=== PATIENT | male | born 1950 | race Caucasian/White ===

== ENCOUNTER → 2017-06-04 22:58 | Emergency (ER) | payer MEDICARE ==
[2017-06-04] MEDS: NS 0.9% 1000 ML* 1,000 ML IV ONE (23:49)
[2017-06-04 23:59] LABS: Hematocrit 37 % (42-52); Hemoglobin 13.1 g/dl (14.0-18.0); Mean Corpuscular HGB Conc 35 g/dl (31-36); Mean Corpuscular Hemoglobin 32 pg (27-31); Mean Corpuscular Volume 90 fL (80-94); Mean Platelet Volume 8 um3 (7.4-10.4); Red Blood Count 4.13 10^6/ul (4.0-5.4); Red Cell Distribution Width 13 % (10.5-15)
[2017-06-05 00:11] LABS: ALT 14 U/L (7-52); AST 18 U/L (13-39); Alkaline Phosphatase 71 U/L (34-104); Anion Gap 7 mmol/L (2-11); BUN/Creatinine Ratio 17.8 (8-20); Blood Urea Nitrogen 16 mg/dL (6-24); C Reactive Protein < 1.00 mg/L (< 5.00); CO2 Carbon Dioxide 24 mmol/L (22-32); Calcium 8.7 mg/dL (8.6-10.3); Chloride 101 mmol/L (101-111); Creatine Kinase 108 U/L (10-223); EGFR African American 108.9 (>60); EGFR Non-African American 84.7 (>60); Globulin 3.3 g/dL (2-4); Glucose 252 mg/dL (70-100); Magnesium 2.1 mg/dL (1.9-2.7); Potassium 3.9 mmol/L (3.5-5.0); Sodium 132 mmol/L (133-145); Total Protein 7.3 g/dL (6.4-8.9)
[2017-06-05 00:29] LABS: TSH (Thyroid Stimulating Horm) 4.18 mcIU/mL (0.34-5.60)
[2017-06-05] MEDS: NS 0.9% 1000 ML* 1,000 ML IV ONE (01:01)
[2017-06-05 02:04] LABS: Urine Bilirubin Negative (Negative); Urine Glucose 1+(50 mg/dL) (Negative); Urine Nitrite Negative (Negative)
[2017-06-05 03:03] VITALS: BP 144/84
--- NOTE | 2017-06-05 07:50 | RAD ---
HISTORY: Dizziness COMPARISONS: September 03, 2015 VIEWS: 1: frontal portable view of the chest at 12:15 AM FINDINGS: LINES AND TUBES: None. CARDIOMEDIASTINAL SILHOUETTE: The cardiomediastinal silhouette is normal for portable technique. PLEURA: The costophrenic angles are sharp. No pleural abnormalities are noted. LUNG PARENCHYMA: The lungs are clear. ABDOMEN: The upper abdomen is clear. There is no subphrenic gas. BONES AND SOFT TISSUES: No bone or soft tissue abnormalities are noted. IMPRESSION: NO ACTIVE CARDIOPULMONARY DISEASE.
--- NOTE | 2017-06-05 10:39 | ED ---
Barbara Harper Thomas, scribed for Sally Riggs MD on 06/04/17 at 2347 . Dizziness - HPI Summary HPI Summary: The pt is a 67 y/o F presenting to the ED c/o dizziness that suddenly began today at 21:30. The dizziness began when he was sitting and it is characterized as room spinning. The dizziness is aggravated by standing up and alleviated by nothing. 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 Pt additionally c/o nausea, tiredness, and diaphoresis (STATIONARY FIREMAN). Pt denies SINGH, CP, sinus pressure, and abd pain. He denies recent illness. He has no prior episodes of dizziness. There is no known cardiac disease. PMHx of HTN and HLD, both treated with medication. FHx of [place] in father. - History Of Current Complaint Chief Complaint: EDDizziness Stated Complaint: DIZZY/NAUSEA Time Seen by Provider: 06/04/17 23:06 Hx Obtained From: Patient Onset/Duration: Suddenly Timing: Constant Character: Room Spinning Aggravating Factor(s): Nothing Alleviating Factor(s): Nothing Associated Signs And Symptoms: Positive: Nausea, Other: - Tiredness, diaphoresisNEGATIVE: SINGH, sinus pressure, abd pain. Negative: Chest Pain - Allergies/Home Medications Allergies/Adverse Reactions: Allergies Allergy/AdvReac Type Severity Reaction Status Date / Time Nitroglycerin Allergy Rash Verified 09/16/15 09:07 PMH/Surg Hx/FS Hx/Imm Hx Previously Healthy: No Endocrine/Hematology History: Denies: Hx Diabetes Cardiovascular History: Reports: Hx Angina, Hx Hypercholesterolemia, Hx Hypertension Denies: Hx Coronary Artery Disease, Hx Myocardial Infarction, Hx Pacemaker/ ICD, Hx Valvular Heart Disease Respiratory History: Denies: Hx Asthma, Hx Chronic Obstructive Pulmonary Disease (COPD) History: Denies: Hx Dialysis, Hx Renal Disease Sensory History: Denies: Hx Hearing Aid Psychiatric History: Reports: Other Psychiatric Issues/Disorders - claustrophobia Denies: Hx Panic Disorder - Surgical History Surgery Procedure, Year, and Place: None Infectious Disease History: No Infectious Disease History: Denies: Traveled Outside the [place] in Last 30 Days - Family History Known Family History: Positive: Cardiac Disease - [place] in father - Social History Alcohol Use: Occasionally Hx Substance Use: No Substance Use Type: Reports: None Hx Tobacco Use: No Smoking Status (MU): Never Smoked Tobacco Review of Systems Positive: Skin Diaphoresis - STATIONARY FIREMAN, Other - Tiredness Negative: Other - NEGATIVE: sinus pressure Negative: Chest Pain Positive: Nausea. Negative: Abdominal Pain Neurological: Other - Dizziness with sudden onset today at 21:30 Negative: Headache All Other Systems Reviewed And Are Negative: Yes Physical Exam Triage Information Reviewed: Yes Vital Signs On Initial Exam: Initial Vitals Temp Pulse Resp BP Pulse Ox 96 F 63 20 135/79 99 06/04/17 23:00 06/04/17 23:00 06/04/17 23:00 06/04/17 23:00 06/04/17 23:00 Vital Signs Reviewed: Yes Appearance: Positive: No Pain Distress, Well-Nourished, Ill-Appearing Skin: Positive: Warm, Skin Color Reflects Adequate Perfusion Head/Face: Positive: Normal Head/Face Inspection Eyes: Positive: Conjunctiva Clear ENT: Positive: Normal ENT inspection Neck: Positive: Supple Respiratory/Lung Sounds: Positive: Clear to Auscultation, Breath Sounds Present , Other - No respiratory distress Cardiovascular: Positive: RRR, Pulses are Symmetrical in both Upper and Lower Extremities, Other - Brisk cap refill. Negative: Murmur Abdomen Description: Positive: Nontender, Soft Bowel Sounds: Positive: Present Musculoskeletal: Positive: Strength/ROM Intact Neurological: Positive: Sensory/Motor Intact, Alert, Oriented to Person Place, Time, Facial Symmetry, Speech Normal Psychiatric: Positive: Normal Diagnostics - Vital Signs Vital Signs Temp Pulse Resp BP Pulse Ox 06/04/17 23:00 96 F 63 20 135/79 99 - Laboratory Lab Results: Lab Results 06/04/17 06/04/17 06/04/17 Range/Units 23:40 23:40 23:40 WBC (3.5-10.8) 10^3/ul RBC (4.0-5.4) 10^6/ul Hgb (14.0-18.0) g/dl Hct (42-52) % MCV (80-94) fL MCH (27-31) pg MCHC (31-36) g/dl RDW (10.5-15) % Plt Count (150-450) 10^3/ul MPV (7.4-10.4) um3 Neut % (Auto) (38-83) % Lymph % (Auto) (25-47) % [place] % (Auto) (1-9) % Eos % (Auto) (0-6) % Baso % (Auto) (0-2) % Absolute Neuts (auto) (1.5-7.7) 10^3/ul Absolute Lymphs (auto) (1.0-4.8) 10^3/ul Absolute Monos (auto) (0-0.8) 10^3/ul Absolute Eos (auto) (0-0.6) 10^3/ul Absolute Basos (auto) (0-0.2) 10^3/ul Absolute Nucleated RBC 10^3/ul Nucleated RBC % INR (Anticoag Therapy) 0.97 (0.89-1.11) APTT 29.7 (26.0-36.3) seconds Sodium 132 L (133-145) mmol/L Potassium 3.9 (3.5-5.0) mmol/L Chloride 101 (101-111) mmol/L Carbon Dioxide 24 (22-32) mmol/L Anion Gap 7 (2-11) mmol/L BUN 16 (6-24) mg/dL Creatinine 0.90 (0.67-1.17) mg/dL Est GFR ( Amer) 108.9 (>60) Est GFR (Non-Af Amer) 84.7 (>60) BUN/Creatinine Ratio 17.8 (8-20) Glucose 252 H (70-100) mg/dL Lactic Acid (0.5-2.0) mmol/L Calcium 8.7 (8.6-10.3) mg/dL Magnesium 2.1 (1.9-2.7) mg/dL Total Bilirubin 0.30 (0.2-1.0) mg/dL AST 18 (13-39) U/L ALT 14 (7-52) U/L Alkaline Phosphatase 71 (34-104) U/L Total Creatine Kinase 108 (10-223) U/L Troponin I 0.00 (<0.04) ng/mL C-Reactive Protein < 1.00 (< 5.00) mg/L B-Natriuretic Peptide 37 ( - 100) pg/mL Total Protein 7.3 (6.4-8.9) g/dL Albumin 4.0 (3.2-5.2) g/dL Globulin 3.3 (2-4) g/dL Albumin/Globulin Ratio 1.2 (1-3) TSH 4.18 (0.34-5.60) mcIU/mL Urine Color Urine Appearance Urine pH (5-9) Ur Specific [place] (1.010-1.030) Urine Protein (Negative) Urine Ketones (Negative) Urine Blood (Negative) Urine Nitrate (Negative) Urine Bilirubin (Negative) Urine Urobilinogen (Negative) Ur Leukocyte Esterase (Negative) Urine Glucose (Negative) 06/04/17 06/04/17 06/05/17 Range/Units 23:40 23:40 01:45 WBC 9.0 (3.5-10.8) 10^3/ul RBC 4.13 (4.0-5.4) 10^6/ul Hgb 13.1 L (14.0-18.0) g/dl Hct 37 L (42-52) % MCV 90 (80-94) fL MCH 32 H (27-31) pg MCHC 35 (31-36) g/dl RDW 13 (10.5-15) % Plt Count 219 (150-450) 10^3/ul MPV 8 (7.4-10.4) um3 Neut % (Auto) 76.1 (38-83) % Lymph % (Auto) 16.2 L (25-47) % [place] % (Auto) 4.8 (1-9) % Eos % (Auto) 2.2 (0-6) % Baso % (Auto) 0.7 (0-2) % Absolute Neuts (auto) 6.8 (1.5-7.7) 10^3/ul Absolute Lymphs (auto) 1.5 (1.0-4.8) 10^3/ul Absolute Monos (auto) 0.4 (0-0.8) 10^3/ul Absolute Eos (auto) 0.2 (0-0.6) 10^3/ul Absolute Basos (auto) 0.1 (0-0.2) 10^3/ul Absolute Nucleated RBC 0 10^3/ul Nucleated RBC % 0 INR (Anticoag Therapy) (0.89-1.11) APTT (26.0-36.3) seconds Sodium (133-145) mmol/L Potassium (3.5-5.0) mmol/L Chloride (101-111) mmol/L Carbon Dioxide (22-32) mmol/L Anion Gap (2-11) mmol/L BUN (6-24) mg/dL Creatinine (0.67-1.17) mg/dL Est GFR ( Amer) (>60) Est GFR (Non-Af Amer) (>60) BUN/Creatinine Ratio (8-20) Glucose (70-100) mg/dL Lactic Acid 2.2 H* (0.5-2.0) mmol/L Calcium (8.6-10.3) mg/dL Magnesium (1.9-2.7) mg/dL Total Bilirubin (0.2-1.0) mg/dL AST (13-39) U/L ALT (7-52) U/L Alkaline Phosphatase (34-104) U/L Total Creatine Kinase (10-223) U/L Troponin I (<0.04) ng/mL C-Reactive Protein (< 5.00) mg/L B-Natriuretic Peptide ( - 100) pg/mL Total Protein (6.4-8.9) g/dL Albumin (3.2-5.2) g/dL Globulin (2-4) g/dL Albumin/Globulin Ratio (1-3) TSH (0.34-5.60) mcIU/mL Urine Color Yellow Urine Appearance Clear Urine pH 7.0 (5-9) Ur Specific [place] 1.012 (1.010-1.030) Urine Protein Negative (Negative) Urine Ketones Negative (Negative) Urine Blood Negative (Negative) Urine Nitrate Negative (Negative) Urine Bilirubin Negative (Negative) Urine Urobilinogen Negative (Negative) Ur Leukocyte Esterase Negative (Negative) Urine Glucose 1+(50 mg/dl) H (Negative) Result Diagrams: 06/04/17 23:40 06/04/17 23:40 Lab Statement: Any lab studies that have been ordered have been reviewed, and results considered in the medical decision making process. - Radiology CXR Xray Interpretation: No Acute Changes - No acute disease. Radiology Interpretation Completed By: ED Physician - EKG 23:07 Cardiac Rate: Bradycardia - 57 BPM EKG Rhythm: Sinus Bradycardia EKG Interpretation: Nml AV/IV/[place]/QTc. No acute changes. EKG Comparison: Other - Compared to 06/18/16, there is no significant change. Re-Evaluation - Re-Evaluation First Eval Re-Evaluation Time: 00:48 Change: Improved Comment: At re-evaluation at 00:48, the patient's dizziness when standing up is relieved and he overall feels better. He is not orthostatic. Lying: BP 140/75, HR 60, RR 14, SaO2 98. Sitting: BP 136/71, HR 62, RR 17, SaO2 96. Standing: BP 147/79, HR 64, RR 16, SaO2 95. Dizzy Course/Dx - Course Course Of Treatment: I am aware of elevated lactate at 00:20. Patient is not orthostatic. Allergies noted. High blood pressure noted. Patients medications reviewed this visit. Assessment/Plan: The pt is a 67 y/o F presenting to the ED c/o dizziness that suddenly began today at 21:30. The dizziness is characterized as room spinning and is aggravated by standing up. Pt denies SINGH, and CP. Patients medication reviewed this visit. Blood pressure noted. In the ED course the patient was given IV fluids. EKG was obtained. Bloodwork was obtained with results earlier in this report. Lactic acid 2.2, Glucose UA was obtained with results earlier in this report. EKG shows sinus bradycardia. CXR shows no acute changes. Patient is diagnosed with dizziness and hyperglycemia. Patient will be discharged home with follow up by PCP. Pt is agreeable with this plan. - Diagnoses Provider Diagnoses: Dizziness, Hyperglycemia, HTN under poor control Discharge - Discharge Plan Condition: Stable Disposition: HOME Patient Education Materials: Hyperglycemia, Non-Diabetic (ED), Dizziness (ED) Referrals: Dalila Blair MD [Medical Doctor] - 2 Days Additional Instructions: Your glucose was 252 tonight which is very elevated, and you will likely be diagnosed with diabetes. You will need to follow up with Dr. Regine LIRA for this. Return to the emergency department for any new or worsening symptoms. The documentation as recorded by the Barbara allison Thomas accurately reflects the service I personally performed and the decisions made by me, Sally Riggs MD.
== END | disposition home or self-care (01) ==
LOC: ED 22:58
DX: R73.9 Hyperglycemia, unspecified (principal); I10 Essential (primary) hypertension; R42 Dizziness and giddiness; R11.0 Nausea
CPT/HCPCS: 36415; 71010; 80053; 81003; 82550; 83605; 83735; 83880; 84443; 84484; 85025; 85610; 85730; 86140; 93005; 99283

== ENCOUNTER 2019-01-08 10:05 | Observation (INO) | payer MEDICARE ==
--- NOTE | 2019-01-08 10:39 | ED ---
Neurological HPI - HPI Summary HPI Summary: Patient is a 68 y/o M presenting to ED with complaints of recent near syncopal episodes. In the room, patient and recount three separate episodes of falls. Last night, patient had been pushing his child on a swing and was experiencing left arm pain. reports that during this time, the patient experienced a fall. The patient had stated, "I lost my balance" after the fall. Patient's also reports that, this morning, she heard the patient fall from his bed this morning onto the floor. She reports that the patient was unable to speak for a few minutes during this incident. Patient has limited memory of this incident and states that he does not recall getting too close to the edge of the bed. Patient's also reports that the patient had attempted to sit in a chair this morning, missed it, and fell onto the ground. She states that the patient had an inability to talk during this episode as well. Acute left- sided weakness is reported by the patient's . PMHx of HTN, HLD. No PSHx is reported. FMHx of cardiac disease. Occasional alcohol usage is endorsed, substance usage is denied, patient has never smoked cigarettes. On triage, pain is rated 3/10, nothing is noted to aggravate/alleviate Sx. Home medications and allergies are reviewed. 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 - Onset/Duration: Started days ago Timing: Intermittent Episodes Lasting: - 3 episodes Current Severity: Mild - 3/10 pain on triage Neurological Deficit Location: LUE, LLE Pain Intensity: 3 Pain Scale Used: 0-10 Numeric - 3/10 Character: Impaired Speech, Other: - near syncope, left sided weakness Frequency: Episodes x___ - 3 Aggravating: Nothing Alleviating: Nothing Associated Signs and Symptoms: Positive: Memory Loss, Weakness - left sided, Impaired Speech - Allergy/Home Medications Allergies/Adverse Reactions: Allergies Allergy/AdvReac Type Severity Reaction Status Date / Time nitroglycerin Allergy Rash Verified 01/08/19 16:50 Home Medications: Home Medications Aspirin EC TAB* [Ecotrin EC Low Dose 81 MG*] 81 mg PO BEDTIME 01/08/19 [History Confirmed 01/08/19] Lisinopril TAB* [Prinivil TAB*] 5 mg PO DAILY 01/08/19 [History Confirmed ] Metoprolol Tartrate TAB* [Lopressor TAB*] 25 mg PO BID 01/08/19 [History Confirmed 01/08/19] Simvastatin TAB(NF) [Zocor(NF)] 20 mg PO QPM 01/08/19 [History Confirmed ] PMH/Surg Hx/FS Hx/Imm Hx Endocrine/Hematology History: Denies: Hx Diabetes Cardiovascular History: Reports: Hx Angina, Hx Hypercholesterolemia, Hx Hypertension Denies: Hx Coronary Artery Disease, Hx Myocardial Infarction, Hx Pacemaker/ ICD, Hx Valvular Heart Disease Respiratory History: Denies: Hx Asthma, Hx Chronic Obstructive Pulmonary Disease (COPD) History: Denies: Hx Dialysis, Hx Renal Disease Sensory History: Denies: Hx Hearing Aid Psychiatric History: Reports: Other Psychiatric Issues/Disorders - claustrophobia Denies: Hx Panic Disorder - Surgical History Surgery Procedure, Year, and Place: None Infectious Disease History: No Infectious Disease History: Denies: Traveled Outside the [place] in Last 30 Days - Family History Known Family History: Positive: Cardiac Disease - [place] in father - Social History Alcohol Use: Occasionally Hx Substance Use: No Substance Use Type: Reports: None Hx Tobacco Use: No Smoking Status (MU): Never Smoked Tobacco Review of Systems Musculoskeletal: Other - POSITIVE - LEFT ARM PAIN; MULTIPLE FALLS Positive: Weakness - left sided, Syncope - near All Other Systems Reviewed And Are Negative: Yes Physical Exam - Summary Physical Exam Summary: VITAL SIGNS: Reviewed. GENERAL: Patient is a well-developed and nourished male who is lying comfortable in the stretcher. Patient is not in any acute respiratory distress. HEAD AND FACE: No signs of trauma. No ecchymosis, hematomas or skull depressions. No sinus tenderness. EYES: PERRLA, EOMI x 2, No injected conjunctiva, no nystagmus. No photophobia. EARS: Hearing grossly intact. Ear canals and tympanic membranes are within normal limits. MOUTH: Oropharynx within normal limits. NECK: Supple, trachea is midline, no adenopathy, no JVD, no carotid bruit, no c- spine tenderness, neck with full ROM. No meningeal signs, no Kernig's or brudzinskis signs. CHEST: Symmetric, no tenderness at palpation LUNGS: Clear to auscultation bilaterally. No wheezing or crackles. CVS: Regular rate and rhythm, S1 and S2 present, no murmurs or gallops appreciated. ABDOMEN: Soft, non-tender. No signs of distention. No rebound no guarding, and no masses palpated. Bowel sounds are normal. EXTREMITIES: FROM in all major joints, no edema, no cyanosis or clubbing. NEURO: Alert and oriented x 3. Speech is normal and follows commands. NIH 2 SKIN: Dry and warm GCS: 15 Triage Information Reviewed: Yes Vital Signs On Initial Exam: Initial Vitals Temp Pulse Resp BP Pulse Ox 96.6 F 68 18 167/93 98 01/08/19 10:06 01/08/19 10:06 01/08/19 10:06 01/08/19 10:06 01/08/19 10:06 Vital Signs Reviewed: Yes Diagnostics - Vital Signs Vital Signs Temp Pulse Resp BP Pulse Ox 01/08/19 10:06 96.6 F 68 18 167/93 98 - Laboratory Result Diagrams: 01/09/19 05:38 01/09/19 05:38 Lab Statement: Any lab studies that have been ordered have been reviewed, and results considered in the medical decision making process. - Radiology CHEST X-RAY Radiology Interpretation Completed By: Radiologist Summary of Radiographic Findings: IMPRESSION: No active cardiopulmonary disease is noted. THIS REPORT WAS REVIEWED BY DR. ISRAEL. BRAIN MRI Radiology Interpretation Completed By: Radiologist Summary of Radiographic Findings: IMPRESSION: SUBACUTE NONHEMORRHAGIC INFARCT OF THE RIGHT POSTERIOR FRONTAL CHRISTENSEN RADIATA. THIS REPORT WAS REVIEWED BY DR. ISRAEL. - CT BRAIN CT CT Interpretation Completed By: Radiologist Summary of CT Findings: IMPRESSION: #. No CT evidence for intracranial hemorrhage or acute or subacute ischemic infarct. Mild. involutional change and stigmata of chronic small vessel ischemic disease. THIS REPORT WAS REVIEWED BY DR. ISRAEL. HEAD CTA CT Interpretation Completed By: Radiologist Summary of CT Findings: IMPRESSION: 1. NO INTERNAL CAROTID ARTERY STENOSIS BY NASCET. 2. NO ANEURYSM, VASCULAR MALFORMATION, OCCLUSION, OR STENOSIS OF THE VISUALIZED. INTRACRANIAL CIRCULATION. THIS REPORT WAS REVIEWED BY DR. ISRAEL. - EKG 1022 Cardiac Rate: NL - rate of 67 BPM EKG Rhythm: Sinus Rhythm EKG Comparison: No Significant Change - EKG is similar to one done on 06/04/17 Summary of EKG Findings: EKG showed sinus rhythm with rate of 67 BPM, no ST elevation, EKG is similar to one done on 06/04/17 NIH Scale - NIH Scale Level of Consciousness: Alert/Keenly Responsive Ask Patient the Month and His/Her Age: Both Correct Ask Pt to Open/Close Eyes and Enamel Dipper/Release Non-Paretic Hand: Both Correctly Best Gaze (Only Horizontal Eye Movement): Normal Visual Field Testing: No Visual Loss Facial Paresis-Pt to Smile & Close Eyes or Grimace Symmetry: Normal/Symmetrical Motor Function - Right Arm: No Drift-Holds 10 Seconds Motor Function - Left Arm: Drifts LT 10 seconds Motor Function - Right Leg: No Drift-Holds 10 Seconds Motor Function - Left Leg: Drifts LT 10 seconds Limb Ataxia-Must be out of Proportion to Weakness Present: Absent Sensory (Use Pinprick to Test Arms/Legs/Trunk/Face): Normal Best Language (Describe Picture, Name Items): No Aphasia Dysarthria (Read Several Words): Normal Extinction and Inattention: No Abnormality Total Score: 2 Re-Evaluation - Re-Evaluation First Eval Re-Evaluation Time: 14:55 Comment: Discussed results of labs and imaging and consults, he is agreeable with admission. Course/Dx - Course Assessment/Plan: This patient is a 68-year-old male who presents to the emergency department with his with a chief complaint of having multiple falls since yesterday. Patient really doesnt remember exactly how he fell he thinks that he lost his balance however the patients reports that he did not lose his balance he is just weak in the left side. Past medical history significant for hypertension. In the physical exam the patient had slight weakness in the left upper extremity and left lower extremity. Head CT impression: No CT evidence for intracranial hemorrhage or acute or subacute ischemic infarct. Mild involutional changes and stigmata of chronic small vessel ischemic disease. Blood test results without any significant abnormality except for glucose of 156. Chest x-ray impression: No active cardiopulmonary disease. At 11:50 AM I discussed the case with Dr. Hinson from neurology who recommends a CTA of the head and neck and MRI of the brain without contrast. I also give the patient aspirin after swallowing evaluation was performed. CTA impression: No interconnected artery stenosis. No aneurysm , vascular malformation, occlusion or stenosis of the visualized intracranial circulation. Dr. Hinson came and assessed the patient and he recommends for the patient to be admitted for further workup and management. I discuss my physical exam, findings and test results with Dr. Rivers from the hospitalist services and she agrees to admit patient to her services. Patient is hemodynamically stable alert and oriented x 3. Dr. Hinson with follow-up the MRI result. - Diagnoses Provider Diagnoses: Ischemic cerebrovascular accident (CVA) - Physician Notifications Discussed Care Of Patient With: Piyush Hinson Time Discussed With Above Provider: 11:50 Instructed by Provider To: Other - Dr. Sharp communicated results of Brain CT. 1150 - Patient's case was discussed with Dr. Hinson, he asks that CTA Head , MRI be done. 1257 - Results of imaging so far and tests were discussed Dr. Hinson, he will come to ED to evaluate the patient and recommends admission. 1447 - Patient's case was discussed with Dr. Rivers, Dr. Rivers accepts for admission. - Critical Care Time Critical Care Time: 75-104 min Discharge - Sign-Out/Discharge Documenting (check all that apply): Patient Departure - admit - Discharge Plan Condition: Good Disposition: ADMITTED TO [facility] - Billing Disposition and Condition Condition: GOOD Disposition: Admitted to [facility] - Attestation Statements Document Initiated by Mae: Yes Documenting Scribe: TRINA RIVAS Provider For Whom Mae is Documenting (Include Credential): RITA ISRAEL MD Scribe Attestation: I, TRINA RIVAS, scribed for RITA ISRAEL MD on 01/09/19 at 1047. Scribe Documentation Reviewed: Yes Provider Attestation: The documentation as recorded by the TRINA allison accurately reflects the service I personally performed and the decisions made by me, RITA ISRAEL MD Status of Scribe Document: Viewed
[2019-01-08 11:13] LABS: ABS Eosinophils 0.1 10^3/ul (0-0.6); ABS Lymphocytes 1.6 10^3/ul (1.0-4.8); ABS Monocytes 0.7 10^3/ul (0-0.8); ABS Neutrophils 5.1 10^3/ul (1.5-7.7); Eosinophil % 1.3 %; Hematocrit 42 % (42-52); Hemoglobin 14.7 g/dL (14.0-18.0); Lymphocyte % 21.3 %; Mean Corpuscular HGB Conc 35 g/dL (31-36); Mean Corpuscular Hemoglobin 31 pg (27-31); Mean Corpuscular Volume 90 fL (80-94); Mean Platelet Volume 7.1 fL (7.4-10.4); Nucleated Red Blood Cells % 0.1; Platelet Count 212 10^3/uL (150-450); Red Blood Count 4.69 10^6 /uL (4.18-5.48); Red Cell Distribution Width 13 % (10.5-15); White Blood Count 7.5 10^3/uL (3.5-10.8)
[2019-01-08 11:30] LABS: INR 1.06 (0.82-1.09)
[2019-01-08 11:31] LABS: ALT 19 U/L (7-52); AST 16 U/L (13-39); Albumin 4.4 g/dL (3.2-5.2); Albumin/Globulin Ratio 1.3 (1-3); Alkaline Phosphatase 78 U/L (34-104); Anion Gap 6 mmol/L (2-11); BUN/Creatinine Ratio 13.8 (8-20); Blood Urea Nitrogen 13 mg/dL (6-24); CO2 Carbon Dioxide 26 mmol/L (22-32); Calcium 9.4 mg/dL (8.6-10.3); Chloride 104 mmol/L (101-111); Cholesterol 149 mg/dL; EGFR African American 97.2 (>60); EGFR Non-African American 80.3 (>60); Globulin 3.5 g/dL (2-4); Glucose 156 mg/dL (70-100); HDL Cholesterol 44.1 mg/dL; LDL Cholesterol 71 mg/dL; Potassium 3.9 mmol/L (3.5-5.0); Sodium 136 mmol/L (135-145); Total Protein 7.9 g/dL (6.4-8.9); Triglycerides 171 mg/dL; Troponin I 0.01 ng/mL (<0.04)
[2019-01-08 11:52] LABS: Alcohol < 10 mg/dL (<10)
[2019-01-08] MEDS ORDERED: Aspirin 81 mg CHEW TAB* 81 MG TAB.CHEW PO ONE (11:55)
[2019-01-08] MEDS ORDERED: Iohexol 350* (CONTRAST) 500 ML MDV IV ONE (12:09)
[2019-01-08] MEDS ORDERED: Iodixanol 320 (CONTRAST) 100 ML SDV IV ONE (12:35)
[2019-01-08] MEDS ORDERED: Acetaminophen TAB* 325 MG PO PRN (16:08)
[2019-01-08] MEDS ORDERED: Ondansetron INJ* 2 MG/ML VIAL IV PRN (16:08)
[2019-01-08] MEDS ORDERED: Simvastatin TAB(NF) 20 MG TAB PO SCH (18:00)
[2019-01-08] MEDS: Atorvastatin* 20 MG TAB PO SCH (18:05)
[2019-01-08] MEDS: Enoxaparin(*) 40 MG/0.4 ML SYR SUBCUT SCH (18:05)
[2019-01-08 18:16] LABS: Urine Appearance Clear; Urine Bilirubin Negative (Negative); Urine Blood Negative (Negative); Urine Color Yellow; Urine Glucose Negative (Negative); Urine Ketones Negative (Negative); Urine Nitrite Negative (Negative); Urine Protein Negative (Negative); Urine Specific Gravity 1.047 (1.010-1.030); Urine Urobilinogen Negative (Negative)
[2019-01-08 18:42] LABS: Urine Benzodiazepine Screen None Detected (None Detect); Urine Opiates Screen None Detected (None Detect)
[2019-01-08] MEDS: Cyanocobalamin TAB* 500 MCG PO SCH (18:55)
[2019-01-08] MEDS ORDERED: Lactated Ringers 1000 ML Bag* 1,000 ML IV SCH (20:00)
--- NOTE | 2019-01-08 20:56 | CONS ---
CONSULTATION REPORT: DATE OF CONSULT: 01/08/19 PATIENT OF: Dr. Neil, Dr. Blair. HISTORY OF PRESENT ILLNESS: This is a 68-year-old right-handed man who was in his usual state of health until last night. He got up off his sofa and he felt weak on his left side, and he fell out of bed during the course of the night. When his symptoms had persisted, he came to the ER. When he was coming in to the ER, he was having difficulty getting out of the car and Dr. Neil helped him , so thought he was ataxic at that point as well as weak on the left side. He no longer has balance issues other than difficulty walking in the past because of his weakness. 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 He had some mild headache yesterday, but does not currently have a headache. He has had no speech problems. No visual symptoms. No numbness. He has a history of hypertension, hyperlipidemia. No past surgeries. There is a family history of cardiac disease. He drinks sparingly and on occasion. He does not smoke or use drugs. MEDICATIONS: Medicines at home include: 1. Aspirin 81 mg daily. 2. Lisinopril 5 mg daily. 3. Metoprolol 25 mg b.i.d. 4. Simvastatin 20 mg daily. REVIEW OF SYSTEMS: Negative in all 14 spheres, other than in the HPI. PHYSICAL EXAMINATION: On exam, temperature 96.6, pulse 67, respirations 18, blood pressure 160/88. He is alert and oriented with normal speech and comprehension. Cranial nerves II through XII are intact. There was a minor facial asymmetry with the left side being lightly sagged compared to the right, but it was within normal variation. There was no nystagmus. Disks were sharp. Motor exam revealed normal tone. He had a mild left pronator drift. He had trace weakness in his left arm and hand, but not in his leg. He had an abnormal gait because he had more trouble bearing weight on his left leg than on his right and he walked hesitantly. There was no past-pointing and no clear ataxia on his gait. Sensation intact to light touch. Reflexes were 1 and equal , downgoing toes. Neck was supple. Chest: Clear. Cardiovascular: Regular rate and rhythm. Abdomen is soft with positive bowel sounds. DIAGNOSTIC STUDIES/LAB DATA: I reviewed his CT scan, which was normal. His CTA showed no carotid stenosis and no intracranial abnormalities. CBC was normal. Normal INR, PTT. LDL was 71. Normal CMP, other than glucose 156. Serum alcohol was less than 10. ASSESSMENT AND PLAN: Mr. Simms has evidence of a mild left hemiparesis that occurred acutely in January and most likely represents a small stroke. He has got an aspirin here and will be getting an MRI scan and should have most likely aspirin and Plavix. He will need a fasting lipid profile with a target of below 70. Presumably, his LDL will be lower when it is fasting rather than higher and then his statin will not need to be changed. He will also need a cardiac echo with bubble study. Following completion of his evaluation, we will make a decision of whether we need to pursue things further with prolonged EKG monitoring for atrial fibrillation. Thank you for sharing his case. [id number]/[facility] #: [id number] DAKOTAH
[2019-01-08] MEDS ORDERED: Aspirin EC TAB* 81 MG TAB.EC PO SCH (21:00)
--- NOTE | 2019-01-08 21:04 | HP ---
CC: Dr. Blair * ADMISSION HISTORY AND PHYSICAL: DATE OF ADMISSION: 01/08/19 PRIMARY CARE PROVIDER: Dr. Blair. MY ATTENDING WHILE IN THE HOSPITAL: Dr. Divya Rivers.* (DICTATED BY RUBY NEELY) CHIEF COMPLAINT: Left-sided weakness, fall. HISTORY OF PRESENT ILLNESS: Mr. Simms is a 68-year-old male with past medical history significant for hypertension, hyperlipidemia, and diabetes mellitus type 2, not on any medications, who presented to the emergency department after last night he began to feel like the left side of his body was weak and he lost balance and fell 1 time without loss of consciousness or injury. The patient never had anything like this before. The patient with no history of stroke. The patient has some numbness and tingling in his left side , left hand, this has subsided at this time. The patient was concerned but did not seek medical attention until today when his symptoms had persisted. The patient denies dafne dizziness. The patient denies chest pain, shortness of breath, palpitations. The patient has never had a history of palpitations. The patient has no family history of stroke. The patient has no recent changes in his medications. The patient does not check his blood pressure at home. The patient denies shortness of breath or dysuria. The patient has not been recently ill or had any recent sick contacts. The patient has not taken his medications today. The patient in the emergency department was seen in consultation by Dr. Piyush Hinson who identified left-sided weakness in the upper and lower extremities. The patient had a CTA which showed no large vessel occlusion and an MRI, which showed a stroke in the right posterior frontal muse radiata. Due to concern for CVA, we were asked to evaluate the patient for admission to the hospital. PAST MEDICAL HISTORY: Hypertension, hyperlipidemia, diabetes mellitus type 2. PAST SURGICAL HISTORY: None. MEDICATIONS: 1. Metoprolol 25 mg p.o. b.i.d. 2. Lisinopril 5 mg p.o. daily. 3. Aspirin 81 mg p.o. at bedtime. 4. Simvastatin 20 mg p.o. daily. ALLERGIES: NITROGLYCERIN. FAMILY HISTORY: His mother of uterine cancer. The patient's father of [place]. The patient has 1 sister with cancer, 2 sisters who are alive and well. SOCIAL HISTORY: The patient has never smoked, drank or used illicit drugs. The patient is a retired heavy equipment sales associate. The patient is and has 2 children. Surrogate decision maker will be his , Nasrin Simms. REVIEW OF SYSTEMS: A 14-point review of systems was reviewed and is negative except as stated above in the HPI. PHYSICAL EXAMINATION GENERAL: The patient is a 68-year-old male, who appears stated age, sitting comfortably in bed, in no acute distress. VITAL SIGNS: Temperature 96.6, pulse rate 80, respiratory rate 18, oxygen saturation 98% on room air, blood pressure 143/80. HEENT: Head: Normocephalic, atraumatic. Sclerae anicteric. No conjunctival injection. Nasal mucosa moist. Oral mucosa moist. No pharyngeal erythema, discharge, or exudate. NECK: Supple, nontender. No lymphadenopathy. No carotid bruit auscultated. No JVD. RESPIRATORY: Clear to auscultation bilaterally. No wheezes, rales, or rhonchi. Good air exchange bilaterally. CARDIAC: Regular rate and rhythm. No clicks, murmurs, gallops, or rubs. Pulses 2+ in the bilateral dorsalis pedis, posterior tibial, and radial areas. ABDOMEN: Soft, nontender, and nondistended. Bowel sounds present. Normoactive in all 4 quadrants. No hepatosplenomegaly. No abdominal bruits auscultated. No hepatojugular reflux. GENITOURINARY: No suprapubic or CVA tenderness. NEURO: Cranial nerves II through XII intact. The patient has 4-/5 strength in the left upper extremity, 5/5 in the right upper extremity, 4-/5 strength in the left lower extremity, 5/5 strength in the right lower extremity. Finger-to- nose test showed dysmetria on the left side. The patient was not ambulated due to feeling unsteady. Reflexes 1+ throughout. Babinski is downgoing bilaterally. PSYCHIATRIC: Pleasant and cooperative. SKIN: Clean, dry, intact. No rash. DIAGNOSTIC STUDIES/LAB DATA: White blood cell count 7.5, hemoglobin 14.7, platelet count 212. INR 1.06. APTT 30.3. Sodium 136, potassium 3.9, chloride 104, carbon dioxide 26, anion gap 6, BUN 13, creatinine 0.94, glucose 156. Lactic acid 1.4. Calcium 9.4. Bilirubin 0.4, AST 16, ALT 19, alkaline phosphatase 78. Troponin I 0.01. Protein 7.9. Albumin 4.5, globulin 3.5. Triglycerides 171, cholesterol 149, LDL cholesterol 71, HDL cholesterol 44.1. Serum alcohol less than 10. Studies: Electrocardiogram shows normal sinus rhythm, no ST-segment elevation or depression, single PAC, left axis deviation, no hypertrophy or enlargement, no signs of atrial fibrillation. Compared to previous exam, there are no significant changes. Brain CT read as no CT evidence of acute intracranial hemorrhage or subacute ischemic infarct, mild chronic ischemic changes. Chest x-ray read as no active cardiopulmonary disease. CTA read as no internal carotid stenosis by NASCET, no aneurysm, vascular malformation, occlusion or stenosis with visualized intracranial circulation. Brain MRI read as subacute stroke, hemorrhagic infarct, the right posterior frontal muse radiata. ASSESSMENT AND PLAN: Impression: Mr. Simms is a 68-year-old male with past medical history significant for hypertension, hyperlipidemia, and diabetes mellitus type 2 who presents with left-sided weakness and found to have a subacute stroke in the left muse radiata. The patient is not a candidate for TPA and was admitted to the hospital for evaluation secondary to prevention of stroke. 1. Cerebrovascular accident. The patient had significant left-sided weakness consistent with the cerebrovascular accident found on his brain MRI. The patient 's lipid profile shows an LDL of 71. The patient's statin will be increased due to this with goal less than 70. The patient will have hemoglobin A1c checked. The patient is on no medications for his diabetes. The patient's blood pressure is currently within normal limits. The patient does not need fluids nor his blood pressure medication will be continued until tomorrow for permissive hypertension. The patient had no signs of atrial fibrillation. The patient will be monitored on telemetry. The patient may be considered for outpatient Holter monitor. The patient has no signs that this could be a seizure or postictal changes. The patient has no large vessel occlusion and does not need to be transferred at this time. The patient was seen in consultation by Dr. Piyush Hinson of Neurology who will continue to follow along. The patient will have an echocardiogram with a bubble study to assess for PFO. The patient will be evaluated by Physical Therapy and Occupational Therapy. The patient passed swallow evaluation, will have heart healthy diet. 2. Hypertension. Permissive hypertension as above. Resume metoprolol and lisinopril and add additional agents or up-titrate current agents as indicated based on blood pressure. 3. Hyperlipidemia, not at goal. Increase simvastatin to 40 mg p.o. daily. 4. Diabetes mellitus type 2. Hemoglobin A1c is pending. Consider treating this at discharge with oral medications. 5. DVT prophylaxis. Heparin subcu. 6. FEN. The patient will have heart healthy diet, caffeine okay. The patient does not have fluids indicated, but if his blood pressure drops, this could be considered for perfusion of his cerebrovascular accident. 7. Code status. The patient would like to be a full code. 8. Disposition. The patient is admitted to observation. TIME SPENT: Approximately 60 minutes was spent on this admission of this patient, 30 of which was spent [id number] with the patient obtaining history and physical and discussing treatment plan. This plan has been discussed with my attending, Dr. Divya Rivers, she is in agreement. RUBY NEELY [id number]/[facility] #: [id number] MTDD
--- NOTE | 2019-01-08 22:38 | PN ---
Progress Note - Progress Note Date of Service: 01/08/19 Note: Patient had new onset left facial droop (Dx with CVA on MRI) earlier had bolus and lay head flat. Facial droop persisted despite SBP going to 160s. Will repeat head CT. RN concerned for tooth abscess. Patient denies pain. Recommend follow up in AM
[2019-01-09 07:01] LABS: ABS Eosinophils 0.2 10^3/ul (0-0.6); ABS Lymphocytes 1.9 10^3/ul (1.0-4.8); ABS Monocytes 0.8 10^3/ul (0-0.8); ABS Neutrophils 5.6 10^3/ul (1.5-7.7); Hematocrit 41 % (42-52); Hemoglobin 14.2 g/dL (14.0-18.0); Lymphocyte % 22.5 %; Mean Corpuscular HGB Conc 35 g/dL (31-36); Mean Corpuscular Hemoglobin 31 pg (27-31); Mean Corpuscular Volume 90 fL (80-94); Mean Platelet Volume 7.9 fL (7.4-10.4); Nucleated Red Blood Cells % 0.1; Platelet Count 206 10^3/uL (150-450); Red Blood Count 4.56 10^6 /uL (4.18-5.48); Red Cell Distribution Width 13 % (10.5-15); White Blood Count 8.5 10^3/uL (3.5-10.8)
[2019-01-09 07:19] LABS: BUN/Creatinine Ratio 14.9 (8-20); Calcium 9.3 mg/dL (8.6-10.3); EGFR African American 97.2 (>60); EGFR Non-African American 80.3 (>60); Magnesium 2.2 mg/dL (1.9-2.7); Potassium 4.3 mmol/L (3.5-5.0)
[2019-01-09] MEDS ORDERED: Clopidogrel TAB* 75 MG PO SCH (09:00)
[2019-01-09] MEDS ORDERED: Metoprolol Tartrate TAB* 25 MG PO SCH ×2 (09:00)
[2019-01-09] MEDS: Cyanocobalamin TAB* 500 MCG PO SCH (09:19)
[2019-01-09] MEDS ORDERED: Perflutren Lipid Microsphere* 3 ML VIAL ONE (11:14)
--- NOTE | 2019-01-09 16:04 | ECHO ---
*[facility]* [place] [address] Fax #: [phone] Transthoracic Echocardiogram Patient: Mendez, Height: 69 in / Mike N 175.3 cm : 1950 Weight: 231.5 lb / Study Date: 01/09/2019 105.2 kg Age: 68 BP: 145 / 79 Gender: M BMI/BSA: 34.3 kg/m^2 HR: 81 bpm / 2.2 m^2 *Plastic Surgery Technician: * Thania Burgos [facility] RN *Referring Physician: * Jerry Rosa *Reading Physician: * Yobani Mustafa MD Indications: TIA. History: Risk factors: Hypertension. Diabetes mellitus. Obese. Dyslipidemia. Conclusions Summary: 1. Left ventricle: The cavity size is normal. Wall thickness is moderately increased. Systolic function is normal. The estimated ejection fraction is 60-65%. There are no regional wall motion abnormalities. 2. Atrial septum: Bubble study was negative 3. Mitral valve: There is trivial regurgitation. 4. Aortic valve: There is trace to mild regurgitation. 5. Tricuspid valve: There is trivial regurgitation. 6. Pericardium, extracardiac: There is no pericardial effusion. 7. Impressions: No previous study was available for comparison. Study data: Transthoracic echocardiogram. Procedure: Transthoracic echocardiography was performed. A total of 3 ml of diluted Definity was given IV for image enhancement by Sherry Burgos RN, [facility]. Agitated normal saline was given IV for the bubble study. Images 1 and 2. Complete 2D, spectral Doppler, and color flow Doppler. Location: Procedure room. Patient status: Inpatient. Patient room number: 445-01. Rhythm: Normal sinus rhythm with PAC's. Findings Left ventricle: The cavity size is normal. Wall thickness is moderately increased. Systolic function is normal. The estimated ejection fraction is 60-65%. There are no regional wall motion abnormalities. There is no consistent Doppler evidence of clinically significant diastolic dysfunction. Right ventricle: The cavity size is normal. Systolic function is normal. Left atrium: The atrium is normal in size. Right atrium: The atrium is normal in size. Atrial septum: Bubble study was negative Images 1 and 2. Mitral valve: The leaflets are mildly thickened. There is no evidence of stenosis. There is trivial regurgitation. Aortic valve: The valve is trileaflet. The leaflets are mildly thickened. There is no evidence of stenosis. There is trace to mild regurgitation. The LVOT to aortic valve VTI ratio is 0.74. The ratio of LVOT to aortic valve peak velocity is 0.66. The ratio of LVOT to aortic valve mean velocity is 0.65. The mean systolic gradient is 4.0 mm Hg. The peak systolic gradient is 10.0 mm Hg. Tricuspid valve: The valve is structurally normal. There is no evidence of stenosis. There is trivial regurgitation. Pulmonic valve: The valve is structurally normal. There is no evidence of stenosis. There is trace to mild regurgitation. The peak systolic gradient is 2.0 mm Hg. Aorta: Aortic root: The aortic root is not dilated. Ascending aorta: The ascending aorta is not dilated. Aortic arch: The aortic arch is not visualized. Pericardium: There is no pericardial effusion. Pulmonary arteries: Not well visualized. Systemic veins: Inferior vena cava: The vessel is normal in size. The respirophasic diameter changes are in the normal range (>= 50%). Measurements Left ventricle Value Ref Left atrium continued Value Ref REMA, LAX (L) 3.7 cm 4.2 - 5.8 Vol/bsa, ES, 1-p 22 ml/m^2 12 - 37 ESD, LAX 3.0 cm 2.5 - 4.0 A4C FS, LAX (L) 19 % 25 - 43 Vol/bsa, ES, 1-p 26 ml/m^2 11 - 43 PW, ED, LAX (H) 1.3 cm 0.6 - 1.0 A2C IVS/PW, ED 1.1 Vol/bsa, ES, A/L 27 ml/m^2 16 - 34 E', lat nilam, (L) 9.9 cm/sec >=10.0 TDI Right atrium Value Ref E/e', lat nilam, 7 ML dim, ES, A4C 3.3 cm 2.6 - TDI 4.4 E', med nilam, (L) 6.9 cm/sec >=7.0 SI dim, ES, A4C 4.7 cm 3.4 - TDI 5.3 E/e', med nilam, 10 TDI Aortic valve Value Ref E', avg, TDI 8.4 cm/sec Nilam diam, ED 2.3 cm --- ----- E/e', avg, TDI 8 <=14 Peak v, S 1.56 m/sec -------- Mean v, S 0.99 m/sec -------- LVOT Value Ref VTI, S 26.6 cm -------- Diam 19.8 cm Mean grad, S 4.0 mm Hg -------- Peak michael, S 1.03 m/sec Peak grad, S 10.0 mm Hg -------- Mean michael, S 0.65 m/sec VTI, S 19.8 cm Mitral valve Value Ref Mean grad, S 2 mm Hg Peak E 0.71 m/sec -------- SV 6097 ml Peak A 0.89 m/sec -------- Decel time 370 ms -------- Ventricular septum Value Ref Peak E/A ratio 0.8 -------- IVS, ED, LAX (H) 1.4 cm 0.6 - 1.0 IVS, ED (H) 1.4 cm 0.6 - 1.0 Aortic root Value Ref Root diam 3.4 cm <4.3 Right ventricle Value Ref REMA minor ax, 3.3 cm 1.9 - 3.5 Ascending aorta Value Ref A4C mid AAo AP diam, S 3.2 cm -------- Left atrium Value Ref Inferior vena cava Value Ref AP dim, ES 3.20 cm 3.00 - Diam 1.8 cm -------- 4.00 ML dim, A4C 3.2 cm SI dim, A4C 5.0 cm Legend: (L) and (H) jaqui values outside specified reference range. Prepared and electronically signed by Yobani Mustafa MD 01/09/2019 16:03
[2019-01-09 16:48] VITALS: BP 157/84
[2019-01-09] MEDS: Enoxaparin(*) 40 MG/0.4 ML SYR SUBCUT SCH (17:00)
[2019-01-09] MEDS: Atorvastatin* 20 MG TAB PO SCH (17:00)
--- NOTE | 2019-01-09 21:13 | PN ---
CONTINUATION ADDENDUM INCLUDED ON THIS REPORT PROGRESS NOTE: DATE OF SERVICE: 01/09/19 PATIENT OF: HISTORY OF PRESENT ILLNESS: This is a 68-year-old right-handed man who is doing better today. His walking is much more stable. He is able to walk up and down stairs and has no headache. There is no numbness at this point. Has no other complaints. MEDICATIONS: Currently include: 1. Aspirin 81 mg daily. 2. Lipitor 20 mg daily. 3. Plavix 75 mg daily. 4. Metoprolol, not given. PHYSICAL EXAMINATION: On exam, temperature is 97.2, pulse 79, respiratory rate is 19, blood pressure 148/76. He is alert and oriented with normal speech and comprehension. Cranial nerves II through XII are intact. Motor exam revealed normal tone. He had a left pronator drift, but it is minimal today. Strength is intact. CONTINUATION ADDENDUM: PHYSICAL EXAMINATION: His gait had minimal give in his left leg when he walks, but he was stable and walked without problem. Strength is 5/5. Chest: Clear. Cardiovascular: Regular rate and rhythm. Abdomen soft with positive bowel sounds. DIAGNOSTIC STUDIES/LAB DATA: His MRI scan showed a small nonhemorrhagic subacute right frontal muse radiata stroke. His CTA was negative. His CBC was normal from today as well as his BMP other than blood sugar that was as high as 128, his B12 was 139. This will need to be treated. ASSESSMENT AND PLAN: Mr. Simms has had a small stroke with some left-sided symptoms, greatly improved. His echo is pending from today and he will need a fasting lipid profile. It is possible that this is secondary to atherosclerotic disease, but he is a young man and we have definitely not proved this. It would be reasonable for him to get a loop recorder to rule out atrial fibrillation. He for now he will be on aspirin and Plavix for a month and then he should go to a single antiplatelet agent. He also has significant snoring, it makes sense to schedule a sleep study to rule out sleep apnea as this has been associated with risk for stroke and other cardiovascular disease. I referred to the hospitalist to determine best treatment for the B12, whether an injection needs to be done or note. I will be glad to see the patient as needed. Thank you for sharing his case. [id number]/[facility] #: [id number] Aleida- [id number]/[facility] #: [id number] DAKOTAH
--- NOTE | 2019-01-09 23:50 | DS ---
CC: Dr. Dalila Blair, Dr. Piyush Hinson * DISCHARGE SUMMARY: DATE OF ADMISSION: 01/08/19 DATE OF DISCHARGE: 01/09/19 PRIMARY CARE PROVIDER: Dr. Dalila Blair. NEUROLOGIST: Dr. Piyush Hinson. ATTENDING PHYSICIAN: Dilcia Mccabe DO * (dictated by Marley Mary NP) PRIMARY DIAGNOSIS: Cerebrovascular accident. SECONDARY DIAGNOSES: 1. Hypertension. 2. Hyperlipidemia. 3. Diabetes mellitus, type 2. STUDIES WHILE IN THE HOSPITAL: 1. EKG on 01/08/19 shows normal sinus rhythm with a rate of 67, QTc of 411, occasional PACs. 2. Brain CT on 01/08/[address] evidence for intracranial hemorrhage or acute or subacute ischemic infarct. Mild involutional changes, stigmata of chronic small vessel ischemic disease. 3. Chest X-ray on 01/08/19 reads as no active cardiopulmonary disease. 4. Head CTA on 01/08/19 reads as no internal carotid artery stenosis by NASCET criteria. No aneurysm, vascular malformation, occlusion, or stenosis of the visualized intracranial circulation. 5. [facility] on 01/08/19 reads as subacute nonhemorrhagic infarct of the right posterior frontal muse radiata. 6. Brain CT on 01/08/19 reads as no acute intracranial findings or CT evidence of large territory infarct. Age-related atrophy and chronic white matter ischemic change. 7. Transthoracic echocardiogram on 01/09/19 reads as left ventricle: The cavity size is normal, wall thickness is moderately increased. Systolic function is normal. The estimated ejection fraction is 60% or 65%. There are no regional wall motion abnormality. Atrial septum: Bubble study was negative. Mitral valve: There is trivial regurgitation. Aortic valve: There is trace to mild regurgitation. Tricuspid valve: There is trivial regurgitation. Pericardium: There is no pericardial effusion. No previous study was available for comparison. HISTORY OF PRESENT ILLNESS AND HOSPITAL COURSE: Mr. Simms is a 68-year-old male with past medical history of hypertension, hyperlipidemia and type 2 diabetes who presented to the emergency room on 01/08/19 with complaints of left -sided weakness and a fall. Please see history and physical by RUBY Lantigua for complete summary of the events leading up to this hospitalization. In summary, the patient prior to presenting to the emergency room noted weakness on the left side of his body. He subsequently lost his balance and fell one time. He did have some numbness and tingling in his left side and because of symptoms had persisted presented to the emergency room. In the emergency room, he had imaging as noted above and lab work, which was essentially unremarkable except for a vitamin B12 level of 139. Vital signs were stable, although he was somewhat hypertensive. Because of the concern for CVA, he was admitted by the hospitalist service. The patient had an brain MRI, which did confirm an acute CVA. He was seen in consultation by Dr. Hinson from Neurology, who felt as though it represented a small stroke. He recommended placing the patient on aspirin and Plavix and recommended a target LDL of less than 70. He additionally recommended an echocardiogram with bubble study, the results of which are noted above. The patient had an uneventful night and was monitored on telemetry. He did not have any evidence of arrhythmias. This morning the patient reported feeling significantly better and felt as though his symptoms had mostly resolved. His at the bedside agreed with this statement. On exam, cranial nerves II through XII are grossly intact. Strength is 5/5 in the right upper and lower extremity and 4/5 in the left upper and lower extremity. The patient notes some unsteadiness while ambulating, but has been able to ambulate independently. Dr. Hinson did see the patient again today and I spoke with Dr. Hinson, who advised that as long as the the patient's imaging was normal, the patient could be discharged home today with plans for followup. Dr. Hinson initially did recommend a loop recorder and sleep study as well as a repeat lipid panel. I will note that in the emergency room, the patient had a lipid panel, which showed triglycerides of 171, total cholesterol of 149, LDL of 71, HDL of 44. This LDL of 71 is obviously greater than the target goal of 70, though this was not a fasting lipid panel and so Dr. Hinson felt as though the patient would benefit from a fasting panel as this number is likely lower. The patient and his are in agreement with plans for discharge. Mr. Simms is stable for discharge today. Vital signs are as follows: Temp 97.7, heart rate 77, respiratory rate 16, oxygen saturation 96% on room, blood pressure 157/84. DISCHARGE MEDICATIONS: New Medications: 1. Clopidogrel 75 mg p.o. daily. 2. Vitamin B12, 1000 mcg p.o. daily. Continued Medications: 1. Aspirin 81 mg p.o. daily. 2. Metoprolol tartrate 25 mg p.o. b.i.d. 3. Simvastatin 20 mg p.o. daily. 4. Lisinopril 5 mg p.o. daily. DISCHARGE PLAN: Mr. Simms will be discharge home. Activities will be as tolerated. Diet should be heart healthy. Medications are noted above. The patient has been started on Plavix per the recommendations of Neurology. He should continue taking his daily aspirin as he was prior to the hospitalization. The patient was noted to have a low vitamin B level while here in the hospital, so it has been recommended that he take vitamin B supplementation at this time. He can continue his other usual medications as noted above and I have not made any further changes. I have ordered a lipid panel for the patient, which I have advised him he can do within the next week, though this should be fasting. The results of this will go to his primary care provider and Dr. Hinson. Additionally, as I noted above I would recommend that the patient have a loop recorder to rule out any paroxysmal atrial fibrillation and he should have a sleep study as he is at high risk for obstructive sleep apnea. He will need to follow up with his primary care provider in 4 to 7 days and should followup with Dr. Hinson within the next month. He should return to the emergency room or nearest hospital for any worsening of symptoms, shortness of breath, lightheadedness, dizziness, chest discomfort, high fever, chills, night sweats, loss of consciousness. or other worrisome signs or symptoms. DISCHARGE CONDITION: Stable. DISCHARGE DISPOSITION: Home. This is a summarized report of a complex medical history and hospital stay. For further details, please see the entire medical record. TIME SPENT: Approximately 40 minutes was spent on this discharge. MARLEY MARY NP [id number]/[facility] #: [id number] [place]
== END 2019-01-09 18:45 | disposition home or self-care (01) ==
LOC: ED 10:05 → MEDTELE 16:08
PROVIDERS: ADMIT Internal Medicine; ATTEND Hospitalist
DX: I63.9 Cerebral infarction, unspecified (principal); I10 Essential (primary) hypertension; E78.5 Hyperlipidemia, unspecified; E11.9 Type 2 diabetes mellitus without complications; R55 Syncope and collapse; R53.1 Weakness; E78.00 Pure hypercholesterolemia, unspecified; I20.9 Angina pectoris, unspecified; Z79.82 Long term (current) use of aspirin
CPT/HCPCS: 36415; 70450; 70496; 70498; 70551; 71046; 80048; 80053; 80061; 80307; 80320; 81003; 82607; 83036; 83605; 83735; 84484; 85025; 85610; 85730; 86850; 86900; 86901; 93005; 93306; 96365; 96372; 99285; A9270-GY; C8929; G0378; G0480; G8978-GP-CI; G8979-GP-CI; G8980-GP-CI; G8987-GO-CI; G8988-GO-CI; G8989-GO-CI; J1650; Q9967